=== PATIENT | female | born 1975 | race Hispanic/Latino ===

== ENCOUNTER 2018-05-18 09:46 | Emergency (ER) | payer OTHER ==
[2018-05-18 10:23] LABS: BILIRUBIN,URINE Negative (NEGATIVE); COLOR,URINE Yellow (YELLOW); GLUCOSE, URINE (UA) Negative (NEGATIVE); KETONES,URINE Trace mg/dL (NEGATIVE); LEUKOCYTE ESTERASE ,URINE Small (NEGATIVE); NITRATE,URINE Negative (NEGATIVE); OCCULT BLOOD,URINE Large (NEGATIVE); PROTEIN,URINE Negative (NEGATIVE)
[2018-05-18 10:25] LABS: APPEARANCE,URINE CLOUDY (CLEAR)
[2018-05-18 10:26] LABS: HCG,QUAL RESULT NEGATIVE (NEGATIVE)
[2018-05-18 10:51] LABS: BACTERIA,URINE Moderate /HPF (None Seen)
[2018-05-18 13:52] LABS: BASOPHILS % (AUTO) 0.4 % (0.0-5.0); EOSINOPHILS % (AUTO) 1.3 % (0.0-8.0); HEMATOCRIT 28.9 % (36-48); LYMPHOCYTES % (AUTO) 27.5 % (21.0-51.0); MEAN CORPUSCULAR HEMOGLOBIN 21.6 pg (27.0-33.0); MEAN CORPUSCULAR HGB CONC 30.5 g/dL (32.0-36.0); MEAN CORPUSCULAR VOLUME 70.8 fL (79-99); MONOCYTES % (AUTO) 7.5 % (3.0-13.0); NEUTROPHILS % (AUTO) 63.3 % (40.0-77.0); PLATELET COUNT (AUTO) 281 K/uL (130-400); RED BLOOD CELL COUNT(AUTO) 4.08 MIL/uL (4.00-5.50); WHITE BLOOD COUNT (AUTO) 6.2 K/uL (4.8-10.8)
[2018-05-18 14:21] LABS: CREATININE 0.7 mg/dL (0.5-1.5)
[2018-05-18 14:25] LABS: ALBUMIN 3.3 g/dL (3.5-5.0); BILIRUBIN,TOTAL 0.5 mg/dL (0.2-1.0); TOTAL PROTEIN, SERUM 7.6 g/dL (6.0-8.3)
[2018-05-18] MEDS ORDERED: HYOSCYAMINE SULFATE 0.125 MG TAB.SUBL SL ONE (15:04)
== END 2018-05-18 15:38 | disposition home or self-care (01) ==
LOC: EDH 09:46
DX: R10.84 Generalized abdominal pain (principal); R11.0 Nausea; Z98.51 Tubal ligation status
CPT/HCPCS: 36415; 74176; 76705; 80053; 81001; 81025; 82150; 83690; 85025

== ENCOUNTER 2021-02-11 12:53 | Emergency (ER) | payer SELFPAY ==
[~2021-02-11] VITALS: Ht 162.6 cm; Wt 127.0 kg
[2021-02-11 13:45] LABS: BASOPHILS % (AUTO) 0.1 % (0.0-5.0); EOSINOPHILS % (AUTO) 2.7 % (0.0-8.0); HEMATOCRIT 43.3 % (36-48); LYMPHOCYTES % (AUTO) 14.6 % (21.0-51.0); MEAN CORPUSCULAR HEMOGLOBIN 30.4 pg (27.0-33.0); MEAN CORPUSCULAR VOLUME 91.9 fL (79-99); MONOCYTES % (AUTO) 9.9 % (3.0-13.0); NEUTROPHILS % (AUTO) 72.4 % (40.0-77.0); PLATELET COUNT (AUTO) 274 K/uL (130-400); RED BLOOD CELL COUNT(AUTO) 4.71 MIL/uL (4.00-5.50); RED CELL DISTRIBUTION WIDTH 15.6 % (11.0-15.5)
[2021-02-11 13:59] LABS: CREATININE 0.7 mg/dL (0.5-1.5); POTASSIUM 3.6 mmol/L (3.5-5.1)
[2021-02-11 14:03] LABS: ALBUMIN 3.6 g/dL (3.5-5.0); BILIRUBIN,TOTAL 0.7 mg/dL (0.2-1.0); TOTAL PROTEIN, SERUM 7.9 g/dL (6.0-8.3)
[2021-02-11 15:25] LABS: APPEARANCE,URINE Clear (CLEAR); BILIRUBIN,URINE Small (NEGATIVE); COLOR,URINE Dark Yellow (YELLOW); GLUCOSE, URINE (UA) Negative (NEGATIVE); KETONES,URINE Trace mg/dL (NEGATIVE); LEUKOCYTE ESTERASE ,URINE Negative (NEGATIVE); NITRATE,URINE Negative (NEGATIVE); OCCULT BLOOD,URINE Negative (NEGATIVE); PH,URINE 6.5 (5.0-8.0); PROTEIN,URINE POS 1+ mg/dL (NEGATIVE)
[2021-02-11] MEDS ORDERED: KETOROLAC 30MG VIAL (30MG/ML) IV ONE (15:30)
[2021-02-11] MEDS ORDERED: DICYCLOMINE 20MG (10MG/ML) AMP IM STA (15:57)
[2021-02-11] MEDS ORDERED: KETOROLAC 60 MG VIAL (30MG/ML) IM ONE (16:00)
[2021-02-11] MEDS ORDERED: KETOROLAC 30MG VIAL (30MG/ML) ONE (16:07)
[2021-02-11] MEDS ORDERED: DICYCLOMINE 20MG (10MG/ML) AMP IM ONE (16:07)
[2021-02-11 16:10] LABS: BACTERIA,URINE Rare /HPF (None Seen); MUCUS,URINE Moderate LPF (None Seen); SQUAMOUS EPITHELIAL CELL,UR Few /HPF (0-2); WBC,URINE 0-1 /HPF (0-1)
[2021-02-11] MEDS ORDERED: DICY20TA2 PO (16:42)
[2021-02-11 17:02] VITALS: BP 135/78
== END 2021-02-11 17:10 | disposition home or self-care (01) ==
LOC: EDH 12:53
DX: K42.9 Umbilical hernia without obstruction or gangrene (principal); K21.9 Gastro-esophageal reflux disease without esophagitis; E66.01 Morbid (severe) obesity due to excess calories; Z68.42 Body mass index [BMI] 45.0-49.9, adult
CPT/HCPCS: 36415; 71045; 74176; 80053; 81001; 81025; 82150; 83690; 84484; 85025; 86140; 93005; 96372 ×2; 96374; 99285; J0500; J1885 ×2